=== PATIENT | male | born 1975 | race Caucasian/White ===

== ENCOUNTER 2016-09-08 13:23 | Emergency (ER) | payer SELFPAY ==
[~2016-09-08] VITALS: Ht 175.3 cm; Wt 100.0 kg
[2016-09-08 13:33] VITALS: BP 118/67; PULSE 109; RESP 20; TEMP 97.8; O2SAT 94
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
[2016-09-08] MEDS ORDERED: IBUPROFEN 800 MG TAB PO ONE (14:00)
== END 2016-09-08 15:12 | disposition home or self-care (01) ==
LOC: NEPD 13:23
DX: S39.012A Strain of muscle, fascia and tendon of lower back, initial encounter (principal); S70.11XA Contusion of right thigh, initial encounter; Y04.0XXA Assault by unarmed brawl or fight, initial encounter
CPT/HCPCS: 99283

== ENCOUNTER 2016-09-09 04:52 | Inpatient (IN) | payer SELFPAY ==
[2016-09-09] VITALS (14 sets, daily range): BP systolic 115–134; BP diastolic 66–83; PULSE 92–116; RESP 16–24; TEMP 97.9–98.8; O2SAT 90–99
[~2016-09-09] VITALS: Ht 176.5 cm; Wt 104.5 kg
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
[2016-09-09] MEDS ORDERED: SODIUM CHLOR 0.9% 1000 ML INJ 1,000 ML IV SCH ×2 (05:31→07:30)
[2016-09-09] MEDS ORDERED: ACETAMINOPHEN/HYDROcodone 325 MG/5 MG TAB PO ONE (05:45)
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
[2016-09-09 06:29] LABS: AUTOMATED NEUTROPHIL # 8.3 TH/MM3 (1.8-7.7); BASOPHIL # 0.1 TH/MM3 (0-0.2); BASOPHIL % 0.7 % (0.0-2.0); EOSINOPHIL # 0.2 TH/MM3 (0-0.4); EOSINOPHIL % 1.9 % (0.0-4.0); HEMATOCRIT 37.3 % (39.0-51.0); HEMO FLAGS DIFF FINAL; LYMPHOCYTE # 0.9 TH/MM3 (1.0-4.8); MEAN CELL VOLUME 87.2 FL (80.0-100.0); MEAN CORPUSCULAR HEMOGLOBIN 30.5 PG (27.0-34.0); MONO % 5.2 % (0.0-8.0); NEUT % 83.2 % (16.0-70.0); PLATELET COUNT 228 TH/MM3 (150-450); RED BLOOD COUNT 4.28 MIL/MM3 (4.50-5.90); RED CELL DISTRIBUTION WIDTH 13.4 % (11.6-17.2)
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
[2016-09-09 07:08] LABS: ALT (GPT) 286 U/L (12-78); ANION GAP 9 MEQ/L (5-15); AST (GOT) 918 U/L (15-37); BICARBONATE 26.1 MEQ/L (21.0-32.0); BLOOD UREA NITROGEN 30 MG/DL (7-18); CHLORIDE 108 MEQ/L (98-107); GLOMERULAR FILTRATION RATE 62 ML/MIN (>89); POTASSIUM 3.7 MEQ/L (3.5-5.1); SODIUM (NA) 143 MEQ/L (136-145)
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
[2016-09-09 07:33] LABS: ALKALINE PHOSPHATASE 82 U/L (45-117); TOTAL BILIRUBIN ADULT 1.6 MG/DL (0.2-1.0)
[2016-09-09 07:49] LABS: BLOOD, URINE MOD (NEG); GLUCOSE,URINE NEG (NEG); KETONE, URINE 10 mg/dL (NEG); NITRITE,URINE NEG (NEG); URINE COLOR YELLOW (YELLW/STRAW)
[2016-09-09 07:51] LABS: COMMENT (UR) CULT NOT INDICATED; CULTURE IF INDICATED CULT NOT INDICATED
[2016-09-09 08:14] LABS: CREATINE KINASE 36358 U/L (39-308)
[2016-09-09] MEDS ORDERED: POTASSIUM PHOSPHATE MONOBASIC 500 MG TAB PO PRN (09:30)
[2016-09-09] MEDS ORDERED: POTASSIUM CHLOR 40 MEQ PREMIX 100 ML IV PRN ×2 (09:30)
[2016-09-09] MEDS ORDERED: MAGNESIUM OXIDE 400 MG TAB PO PRN (09:30)
[2016-09-09] MEDS ORDERED: MAGNESIUM SULFATE INJ 2 GM in SODIUM CHLORIDE 0.9% INJ 96 ML IV PRN (09:30)
[2016-09-09] MEDS ORDERED: POTASSIUM CHLOR 20 MEQ PREMIX 100 ML IV PRN ×2 (09:30)
[2016-09-09] MEDS ORDERED: SODIUM PHOSPHATE INJ 30 MMOL in SODIUM CHLOR 0.9% 250 ML INJ 240 ML IV PRN (09:30)
[2016-09-09] MEDS ORDERED: MAGNESIUM SULFATE INJ 4 GM in SODIUM CHLORIDE 0.9% INJ 92 ML IV PRN (09:30)
[2016-09-09] MEDS ORDERED: POTASSIUM PHOSPHATE MONOBASIC 500 MG TAB PO/TUBE PRN (09:30)
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
[2016-09-09] MEDS ORDERED: CHLORHEXIDINE GLUCONATE 2 % 1 PACK (2 CLOTHS) TOP PRN (09:45)
[2016-09-09] MEDS ORDERED: MISCELLANEOUS NURSING INFORMATION XX SCH (09:45)
[2016-09-09] MEDS ORDERED: MORPHINE SULFATE 4 MG/ML INJ IV PUSH ONE (10:45)
[2016-09-09] MEDS: LACTATED RINGER'S 1000 ML INJ 1,000 ML IV SCH ×4 (10:46→21:00)
[2016-09-09] MEDS: ENOXAPARIN SODIUM 40 MG/0.4 ML SYRINGE SQ SCH (10:46)
[2016-09-09] MEDS: ONDANSETRON HCL 4 MG/2 ML VIAL IV PRN (13:32)
[2016-09-09] MEDS: HYDROmorphone HCL PF 1 MG/ML VIAL IV PUSH PRN ×2 (13:32→21:00)
[2016-09-09] MEDS: SODIUM CHLORIDE 0.9% FLUSH 10 ML FLUSH IV FLUSH PRN ×2 (13:32→21:00)
[2016-09-09 15:05] LABS: CKMB 74.8 NG/ML (0.5-3.6)
--- NOTE | 2016-09-09 19:34 | RADRPT ---
EXAM DATE/TIME: 09/09/2016 18:52 [facility] COMPARISON: No previous studies available for comparison. INDICATIONS : Increased lab values. MEDICAL HISTORY : Gastroesophageal reflux disease. Seizures. Asthma. PTSD. Bipolar. Anxiety. Depression. SURGICAL HISTORY : Right knee surgery. ENCOUNTER: Initial ACUITY: 2 days PAIN SCORE: 10/10 LOCATION: Bilateral upper quadrant MEASUREMENTS: LIVER: 16.8 cm length COMMON DUCT: 3 mm RIGHT KIDNEY: 11.3 x 6.8 x 5.3 cm SPLEEN: 15.2 cm length FINDINGS: LIVER: There is fatty infiltration. COMMON DUCT: No intraluminal mass or stone visualized. GALLBLADDER: Contains no stones, demonstrates no wall thickening or pericholecystic fluid. PANCREAS: Obscured by patient body habitus RIGHT KIDNEY: No hydronephrosis, stone or mass. SPLEEN: No focal lesion. CONCLUSION: Sono- dense liver suggesting fatty infiltration. There is no ductal dilatation. There are no gallst ones. Malcom Ching MD FACR on September 09, 2016 at 19:31 Board Certified Radiologist. This report was verified electronically.
[2016-09-09 20:29] LABS: CKMB 76.5 NG/ML (0.5-3.6)
[2016-09-09] MEDS: DOCUSATE SODIUM 50 MG/SENNA 8.6 MG TAB PO SCH (21:00)
[2016-09-10] VITALS (15 sets, daily range): BP systolic 126–154; BP diastolic 71–93; PULSE 91–106; RESP 15–35; TEMP 98.3–100; O2SAT 91–96
[2016-09-10] MEDS: HYDROmorphone HCL PF 1 MG/ML VIAL IV PUSH PRN ×5 (01:34→21:28)
[2016-09-10] MEDS: LACTATED RINGER'S 1000 ML INJ 1,000 ML IV SCH ×6 (02:00→23:26)
[2016-09-10] MEDS: CHLORHEXIDINE GLUCONATE 2 % 1 PACK (2 CLOTHS) TOP SCH (04:00)
[2016-09-10 04:34] LABS: MEAN CORPUSCULAR HEMOGLOBIN 30.4 PG (27.0-34.0); MEAN CORPUSCULAR HGB CONC 34.5 % (32.0-36.0); PLATELET COUNT 201 TH/MM3 (150-450); RED BLOOD COUNT 3.86 MIL/MM3 (4.50-5.90); RED CELL DISTRIBUTION WIDTH 13.5 % (11.6-17.2); REVIEW FLAG FINAL; WHITE BLOOD COUNT 5.2 TH/MM3 (4.0-11.0)
[2016-09-10 05:02] LABS: BICARBONATE 27.5 MEQ/L (21.0-32.0); POTASSIUM 3.6 MEQ/L (3.5-5.1)
[2016-09-10 05:24] LABS: INDIRECT BILIRUBIN 0.6 MG/DL (0.0-0.8); TOTAL BILIRUBIN ADULT 0.8 MG/DL (0.2-1.0)
[2016-09-10 05:43] LABS: CKMB 34.2 NG/ML (0.5-3.6)
--- NOTE | 2016-09-10 06:21 | RADRPT ---
EXAM DATE/TIME: 09/10/2016 05:17 [facility] COMPARISON: No previous studies available for comparison. INDICATIONS : Evaluate for shortness of breath. MEDICAL HISTORY : None. SURGICAL HISTORY : None. ENCOUNTER: Subsequent ACUITY: 2 days PAIN SCORE: 6/10 LOCATION: Bilateral chest FINDINGS: There is bilateral mostly perihilar air space consolidation. No significant effusion. No pneumothorax . Heart size upper limits normal. CONCLUSION: 1. Bilateral mostly perihilar airspace consolidation. No significant change since CT performed yester day. Differential diagnosis includes pneumonia and aspiration. No significant effusion. No pneumothor ax. Driss Guzman MD on September 10, 2016 at 6:18 Board Certified Radiologist. This report was verified electronically.
[2016-09-10] MEDS: DOCUSATE SODIUM 50 MG/SENNA 8.6 MG TAB PO SCH ×2 (09:00→19:54)
[2016-09-10] MEDS: ENOXAPARIN SODIUM 40 MG/0.4 ML SYRINGE SQ SCH (10:51)
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
[2016-09-10] MEDS: RESP: ALBUTEROL 2.5 MG/IPRATROPIUM 0.5 MG NEB (PRN) INH (20:02)
[2016-09-10 21:12] LABS: CKMB 11.7 NG/ML (0.5-3.6)
[2016-09-10] MEDS ORDERED: HYDROmorphone HCL PF 1 MG/ML VIAL IV PUSH ONE (23:45)
[2016-09-11] VITALS (11 sets, daily range): BP systolic 138–162; BP diastolic 79–97; PULSE 89–101; RESP 18–37; TEMP 98–99.7; O2SAT 91–95
--- NOTE | 2016-09-11 | RADRPT ---
EXAM DATE/TIME: 09/10/2016 23:36 [facility] COMPARISON: CHEST SINGLE AP, September 10, 2016, 5:17. INDICATIONS : Chest pain and shortness of breath with unproductive cough. MEDICAL HISTORY : None. SURGICAL HISTORY : None. ENCOUNTER: Subsequent ACUITY: 1 day PAIN SCORE: 8/10 LOCATION: Bilateral middle chest FINDINGS: Diffuse bilateral air space infiltrates persist without significant change. No evidence of effusion. Cardiomediastinal contours are stable. CONCLUSION: Persistent bilateral infiltrates. Davin Mcgrath MD on September 10, 2016 at 23:58 Board Certified Radiologist. This report was verified electronically.
[2016-09-11 01:11] LABS: CKMB 8.3 NG/ML (0.5-3.6)
[2016-09-11] MEDS: LACTATED RINGER'S 1000 ML INJ 1,000 ML IV SCH (01:27)
[2016-09-11] MEDS: CHLORHEXIDINE GLUCONATE 2 % 1 PACK (2 CLOTHS) TOP SCH (01:29)
[2016-09-11] MEDS ORDERED: Vancomycin Consult Pharmacy 1 EA OTHER SCH (01:30)
[2016-09-11] MEDS ORDERED: VANCOMYCIN INJ 1,000 MG in SODIUM CHLOR 0.9% 250 ML INJ 250 ML IV SCH (01:30)
[2016-09-11] MEDS: HYDROmorphone HCL PF 1 MG/ML VIAL IV PUSH PRN ×5 (01:36→20:03)
[2016-09-11] MEDS ORDERED: PIPERACIL-TAZO 3.375 GM PREMIX 50 ML IV SCH (02:00)
[2016-09-11] MEDS ORDERED: VANCOMYCIN 1,500 MG/NS 500 ML IV ONE ×2 (03:00)
[2016-09-11] MEDS ORDERED: LORazepam 0.5 MG TAB PO ONE (05:30)
[2016-09-11] MEDS: RESP: ALBUTEROL 2.5 MG/IPRATROPIUM 0.5 MG NEB (PRN) INH (05:31)
[2016-09-11 05:54] LABS: BLOOD GAS BASE EXCESS 0.8 mmol/L (-2-2); BLOOD GAS CARBOXYHEMOGLOBIN 1.7 % (0-4); BLOOD GAS HCO3 24 mmol/L (22-26); BLOOD GAS O2 HGB SATURATION 86 % (90-100); BLOOD GAS OXYGEN CONTENT 15.5 Vol % (12.0-20.0); BLOOD GAS PCO2 33 mmHg (38-42); BLOOD GAS PO2 53 mmHg (61-120); BLOOD GAS TOTAL HGB 12.8 G/DL (12.0-16.0); TEMP CORR TO 98.6
[2016-09-11 05:56] LABS: CRITICAL VALUE YES
[2016-09-11 05:57] LABS: DRAW SITE LT RADIAL; NUMBER OF ARTERIAL PUNCTURES 1; STAT YES; ULNAR PULSE PRESENT
[2016-09-11] MEDS ORDERED: POTASSIUM CHLORIDE 10 MEQ CONTROLLED RELEASE TAB PO ONE (06:15)
[2016-09-11] MEDS ORDERED: FUROSEMIDE 20 MG/2 ML VIAL IV PUSH ONE (06:15)
[2016-09-11] MEDS: PIPERACIL-TAZO 3.375 GM PREMIX 50 ML IV SCH ×3 (08:54→20:02)
[2016-09-11] MEDS: DOCUSATE SODIUM 50 MG/SENNA 8.6 MG TAB PO SCH ×2 (09:00→20:02)
[2016-09-11 09:49] LABS: HEMATOCRIT 37.7 % (39.0-51.0); MEAN CELL VOLUME 88.6 FL (80.0-100.0); MEAN CORPUSCULAR HEMOGLOBIN 29.7 PG (27.0-34.0); MEAN CORPUSCULAR HGB CONC 33.6 % (32.0-36.0); PLATELET COUNT 221 TH/MM3 (150-450); RED BLOOD COUNT 4.26 MIL/MM3 (4.50-5.90); RED CELL DISTRIBUTION WIDTH 13.4 % (11.6-17.2); REVIEW FLAG FINAL; WHITE BLOOD COUNT 9.2 TH/MM3 (4.0-11.0)
[2016-09-11 10:30] LABS: BICARBONATE 25.5 MEQ/L (21.0-32.0); INDIRECT BILIRUBIN 0.8 MG/DL (0.0-0.8); POTASSIUM 3.8 MEQ/L (3.5-5.1)
[2016-09-11] MEDS: ENOXAPARIN SODIUM 40 MG/0.4 ML SYRINGE SQ SCH (10:49)
[2016-09-11 10:56] LABS: CKMB 5.9 NG/ML (0.5-3.6)
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
[2016-09-11] MEDS: ONDANSETRON HCL 4 MG/2 ML VIAL IV PRN (13:24)
[2016-09-11] MEDS: VANCOMYCIN INJ 2,000 MG in SODIUM CHLORID 0.9% 500 ML INJ 500 ML IV SCH (13:26)
[2016-09-12] MEDS: HYDROmorphone HCL PF 1 MG/ML VIAL IV PUSH PRN ×3 (00:14→10:14)
[2016-09-12] MEDS: PIPERACIL-TAZO 3.375 GM PREMIX 50 ML IV SCH ×2 (00:14→07:42)
[2016-09-12] MEDS: VANCOMYCIN INJ 2,000 MG in SODIUM CHLORID 0.9% 500 ML INJ 500 ML IV SCH (00:14)
[2016-09-12] MEDS: CHLORHEXIDINE GLUCONATE 2 % 1 PACK (2 CLOTHS) TOP SCH (03:02)
[2016-09-12 04:22] VITALS: TEMP 98.7
[2016-09-12 06:15] LABS: HEMATOCRIT 36.7 % (39.0-51.0); MEAN CELL VOLUME 86.1 FL (80.0-100.0); MEAN CORPUSCULAR HEMOGLOBIN 29.6 PG (27.0-34.0); MEAN CORPUSCULAR HGB CONC 34.4 % (32.0-36.0); PLATELET COUNT 258 TH/MM3 (150-450); RED BLOOD COUNT 4.26 MIL/MM3 (4.50-5.90); RED CELL DISTRIBUTION WIDTH 13.2 % (11.6-17.2); REVIEW FLAG FINAL; WHITE BLOOD COUNT 9.5 TH/MM3 (4.0-11.0)
[2016-09-12 06:50] LABS: BICARBONATE 24.9 MEQ/L (21.0-32.0); POTASSIUM 3.8 MEQ/L (3.5-5.1)
[2016-09-12 07:32] VITALS: O2SAT 95
[2016-09-12] MEDS: DOCUSATE SODIUM 50 MG/SENNA 8.6 MG TAB PO SCH (07:41)
[2016-09-12] MEDS: SODIUM CHLORIDE 0.9% FLUSH 10 ML FLUSH IV FLUSH PRN (07:44)
[2016-09-12 08:00] VITALS: BP 170/102; PULSE 88; RESP 20; TEMP 96.9; O2SAT 96
[2016-09-12] MEDS: ENOXAPARIN SODIUM 40 MG/0.4 ML SYRINGE SQ SCH (10:13)
[2016-09-12 11:32] VITALS: BP 164/107; PULSE 74; RESP 20; TEMP 98.2; O2SAT 99
[2016-09-12] MEDS ORDERED: PHARMACY ORDERED LAB ONE (12:45)
[2016-09-12] MEDS ORDERED: LEVO500T8 PO (13:42)
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
[2016-09-12] MEDS ORDERED: cloNIDine HCL 0.1 MG TAB PO PRN (14:00)
[2016-09-12] MEDS ORDERED: hydrALAZINE HCL 10 MG TAB PO PRN (14:00)
[2016-09-12] MEDS ORDERED: LEVOFLOXACIN 500 MG TAB PO ONE (14:00)
[2016-09-12 16:00] VITALS: BP 156/90; PULSE 82; RESP 20; TEMP 96.5; O2SAT 98
[2016-09-13] MEDS ORDERED: LEVOFLOXACIN 500 MG TAB PO SCH (09:00)
[2016-09-14 21:36] LABS: HISTOPLASMA ANTIGEN UR RESULT Positive (Negative); HISTOPLASMA ANTIGEN UR VALUE 0.72 ng/mL (())
== END 2016-09-12 18:44 | disposition home or self-care (01) | DRG 566 ==
LOC: NEPE 04:52 → NEDA 10:13 → N03A 11:45 → N06A 09-10 17:56
PROVIDERS: ADMIT Hospitalist; ATTEND Hospitalist
DX: T79.6XXA Traumatic ischemia of muscle, initial encounter (principal); K76.0 Fatty (change of) liver, not elsewhere classified; F17.210 Nicotine dependence, cigarettes, uncomplicated; Z88.0 Allergy status to penicillin; Z96.653 Presence of artificial knee joint, bilateral; G89.11 Acute pain due to trauma; Y00.XXXA Assault by blunt object, initial encounter; B19.20 Unspecified viral hepatitis C without hepatic coma; S39.012A Strain of muscle, fascia and tendon of lower back, initial encounter; Y99.8 Other external cause status; R91.8 Other nonspecific abnormal finding of lung field; R00.0 Tachycardia, unspecified; R05 Cough
CPT/HCPCS: 36600; 51702; 71010; 71250; 74176; 76705; 76937; 80048; 80053; 80074; 80076; 81001; 82550; 82552; 82805; 82977; 85025; 85027; 87015; 87385; 87449; 87641; 94150; 94640; 94664; 94667; 94668; 96360; 96361; J1170; J1650; J1940; J2270; J2405; J2543; J3370; J7030; J7040; J7120